=== PATIENT | male | born 1960 | race Caucasian/White ===

== ENCOUNTER 2019-01-16 21:56 | Emergency (ER) | payer MEDICAID, OTHER ==
[~2019-01-16] VITALS: Ht 162.6 cm; Wt 99.0 kg
[2019-01-16 22:17] VITALS: Ht 162.6 cm; Wt 99.0 kg
[2019-01-16] MEDS ORDERED: FUROSEMIDE 40 MG INJ IV STA (22:36)
[2019-01-16] MEDS ORDERED: NITROGLYCERIN 2% 1 GM OINT PKT TD STA (22:36)
[2019-01-17] MEDS ORDERED: FURO40TA4 PO (00:27)
[2019-01-17] MEDS ORDERED: HUM100IN4 SQ (00:27)
[2019-01-17] MEDS ORDERED: METO-448 PO (00:27)
[2019-01-17] MEDS ORDERED: LOSA50TA14 PO (00:32)
[2019-01-17] MEDS ORDERED: MTF1000T PO (00:32)
[2019-01-17] MEDS ORDERED: LISI10TA2 PO (00:32)
[2019-01-17] MEDS ORDERED: ACETAMINOPHEN 325 MG TAB PO STA (03:26)
[2019-01-17 04:28] VITALS: BP 154/103; PULSE 105; RESP 19
--- NOTE | 2019-01-29 02:28 | ERD ---
ER Documentation Chief Complaint Chief Complaint MONA, from home, c/o SOB given 3 nitro, afib on monitorhx of CHF HPI This is a 58-year male brought in by ambulance from home with S of breath. He was given 3 nitroglycerin with mild relief of symptoms. Patient has history of CHF. Denies chest pain nausea vomiting fevers or chills. Denies any other current complaints. ROS All systems reviewed and are negative except as per history of present illness. Medications Home Meds Reported Medications Losartan Potassium* (Losartan Potassium*) 50 Mg Tablet, 50 MG PO DAILY, TAB 01/17/19 Lisinopril* (Lisinopril*) 10 Mg Tablet, 10 MG PO DAILY, #30 TAB 01/17/19 Metformin* (Glucophage*) 1,000 Mg Tablet, 1000 MG PO BID, #60 TAB 01/17/19 Hum Insulin NPH/Reg Insulin Hm (Humulin 70/30 Kwikpen) 100 Unit/1 Ml Insuln.pen, 0 SQ BID PRN for 10u QAM; 20u QPM 01/17/19 Metoprolol Tartrate* (Lopressor*) 25 Mg Tab, 25 MG PO BID, #60 TAB 01/17/19 Furosemide* (Furosemide*) 40 Mg Tablet, 40 MG PO DAILY, TAB 01/17/19 Allergies Allergies: Coded Allergies: No Known Allergy (Unverified , 01/16/19) PMhx/Soc History of Surgery: No Hx Alcohol Use: Yes Hx Substance Use: No Hx Tobacco Use: Yes Smoking Status: Former smoker Physical Exam Physical Exam Const: No acute distress Head: Atraumatic Eyes: Normal Conjunctiva ENT: Normal External Ears, Nose and Mouth. Neck: Full range of motion. No meningismus. Resp: Clear to auscultation bilaterally Cardio: Regular rate and rhythm, no murmurs Abd: Soft, non tender, non distended. Normal bowel sounds Skin: No petechiae or rashes Back: No midline or flank tenderness Ext: No cyanosis, or edema Neur: Awake and alert Psych: Normal Mood and Affect Results 24 hrs Laboratory Tests Test 01/16/19 22:24 White Blood Count 9.4 10^3/ul Red Blood Count 4.68 10^6/ul Hemoglobin 11.7 g/dl Hematocrit 36.8 % Mean Corpuscular Volume 78.6 fl Mean Corpuscular Hemoglobin 25.0 pg Mean Corpuscular Hemoglobin Concent 31.8 g/dl Red Cell Distribution Width 13.0 % Platelet Count 221 10^3/UL Mean Platelet Volume 9.5 fl Immature Granulocytes % 0.500 % Neutrophils % 58.7 % Lymphocytes % 28.6 % Monocytes % 5.9 % Eosinophils % 5.8 % Basophils % 0.5 % Nucleated Red Blood Cells % 0.0 /100WBC Immature Granulocytes # 0.050 10^3/ul Neutrophils # 5.5 10^3/ul Lymphocytes # 2.7 10^3/ul Monocytes # 0.6 10^3/ul Eosinophils # 0.5 10^3/ul Basophils # 0.1 10^3/ul Nucleated Red Blood Cells # 0.0 10^3/ul Activated Partial Thromboplast Time 31.9 Sec Sodium Level 138 mmol/L Potassium Level 3.9 mmol/L Chloride Level 103 mmol/L Carbon Dioxide Level 29 mmol/L Anion Gap 6 Blood Urea Nitrogen 14 mg/dl Creatinine 0.81 mg/dl Est Glomerular Filtrat Rate mL/min > 60 mL/min Glucose Level 171 mg/dl Calcium Level 8.9 mg/dl Total Bilirubin 0.3 mg/dl Direct Bilirubin 0.00 mg/dl Indirect Bilirubin 0.3 mg/dl Aspartate Amino Transf (AST/SGOT) 27 IU/L Alanine Aminotransferase (ALT/SGPT) 30 IU/L Alkaline Phosphatase 85 IU/L Troponin I < 0.012 ng/ml B-Type Natriuretic Peptide 2970 PG/ML Total Protein 7.4 g/dl Albumin 3.9 g/dl Globulin 3.50 g/dl Albumin/Globulin Ratio 1.11 Lipase 65 U/L Current Medications Medications Dose Sig/Trish Start Time Status Last (Trade) Ordered Route PRN Stop Time Admin Dose Reason Admin 1 inch ONCE STAT 01/16/19 DC 01/16/19 Nitroglycerin TD 22:36 22:48 01/16/19 22:37 (Nitroglyceri n 2% Oint) Furosemide 40 mg ONCE STAT 01/16/19 DC 01/16/19 (Lasix) IV 22:36 23:07 01/16/19 22:37 650 mg ONCE STAT 01/17/19 DC 01/17/19 Acetaminophen PO 03:26 03:34 (Tylenol 01/17/19 03:27 Tab) Procedures/MDM EKG: Rate/Rhythm: [Normal Sinus Rhythm] QRS, ST, T-waves: [No changes consistent w/ acute ischemia] Impression: [No evidence of ischemia or arrhythmia] Chest X-ray 1V Interpreted by me: Soft Tissue: No acute abnormalities Bones: No acute abnormalities Mediastinum/Cardiac Silhouette/Lungs: Cardiomegaly. Increased interstitial fluid markings. Impression: CHF Medical decision makin-year-old male has evidence of congestive heart failure. Patient will be transferred to [facility] via [facility] as he is capitated to their insurance. [facility] accepts the patient in transfer. Departure Diagnosis: Primary Impression: SOB (shortness of breath) Condition: Serious HILL WILKERSON Jan 29, 2019 02:28
== END 2019-01-17 04:28 | disposition short-term general hospital (02) ==
LOC: E/R 21:56
DX: R06.02 Shortness of breath (principal); I50.9 Heart failure, unspecified; I11.0 Hypertensive heart disease with heart failure; E11.9 Type 2 diabetes mellitus without complications; Z79.4 Long term (current) use of insulin; Z87.891 Personal history of nicotine dependence
CPT/HCPCS: 71045; 80053; 83690; 83880; 84484; 85025; 85730; 93005; J1940; 36415; 96374